=== PATIENT | male | born 1970 | race Caucasian/White ===

== ENCOUNTER 2018-08-21 17:38 | Emergency (ER) | payer OTHER ==
[~2018-08-21] VITALS: Ht 175.3 cm; Wt 127.0 kg
--- NOTE | 2018-08-21 17:50 | NUR ---
RECEIVED PT AMBULATORY. C/O PRODUCTIVE COUGH FOR 2WKS.SOB UPON EXERTION. DENIES FEVER, DENIES NVD, DENIES EAR PAIN, DENIES PAIN. DENIES RECENT TRAVEL [place]. MD AT BEDSIDE FOR HX AND PHYSICAL KEPT WARM AND COMFORTABLE. MONITORED ACCORDINGLY
--- NOTE | 2018-08-21 18:17 | NUR ---
Patient discharged to home in stable conditon. Written and verbal after care instructions given. Patient verbalizes understanding of instructions. all belongings with patient. ambulatory.
[2018-08-21 18:20] VITALS: BP 134/79
== END 2018-08-21 18:21 | disposition home or self-care (01) ==
LOC: ER 17:38
DX: J06.9 Acute upper respiratory infection, unspecified (principal)
CPT/HCPCS: 71045; A4663

== ENCOUNTER 2023-11-02 14:17 | Emergency (ER) | payer MEDICAID, OTHER ==
[~2023-11-02] VITALS: Ht 175.3 cm; Wt 131.5 kg
[2023-11-02 16:38] LABS: BASOPHILS # (AUTO) 0.1 K/UL (0.0-0.2); BASOPHILS % (AUTO) 1.5 % (0.0-2.0); EOSINOPHILS # (AUTO) 0.3 K/uL (0.0-0.7); EOSINOPHILS % (AUTO) 4.7 % (0.0-7.0); HEMATOCRIT 45.1 % (36.7-47.1); HEMOGLOBIN 15.1 g/dL (12.5-16.3); LYMPHOCYTES # (AUTO) 1.3 K/uL (0.8-4.8); LYMPHOCYTES % (AUTO) 20.7 % (20.5-51.5); MEAN CORPUSCULAR HEMOGLOBIN 29.6 uug (23.8-33.4); MEAN CORPUSCULAR HGB CONC 33 g/dL (32.5-36.3); MEAN CORPUSCULAR VOLUME 88.5 fL (73.0-96.2); MONOCYTES # (AUTO) 0.4 K/uL (0.1-1.30); MONOCYTES % (AUTO) 6.9 % (0.0-11.0); NEUTROPHILS # (AUTO) 4.2 K/uL (1.8-8.9); NEUTROPHILS % (AUTO) 66.2 % (38.5-71.5); PLATELET COUNT (AUTO) 249 K/uL (152-348); RED CELL DISTRIBUTION WIDTH 13.4 % (12.1-16.2); WHITE BLOOD COUNT (AUTO) 6.3 K/uL (3.6-10.2)
[2023-11-02 16:42] LABS: DIFFERENTIAL COMMENT 1
[2023-11-02 16:46] LABS: CALCIUM 9.1 mg/dL (8.5-10.1); CARBON DIOXIDE 28 mmol/L (21-32); CHLORIDE 108 mmol/L (98-107); CREATININE 1.2 mg/dL (0.6-1.3); GLUCOSE 122 mg/dL (74-106); SODIUM SERUM 142 mmol/L (136-145); UREA NITROGEN, BLOOD 20 mg/dL (7-18)
[2023-11-02 16:59] LABS: ALANINE AMINOTRANSFERASE 31 U/L (16-63); ALBUMIN 3.9 g/dL (3.4-5.0); ALKALINE PHOSPHATASE 60 U/L (50-136); ASPARTATE AMINOTRANSFERASE 16 U/L (15-37); BILIRUBIN,DIRECT 0.3 mg/dL (0.0-0.2); BILIRUBIN,TOTAL 1.9 mg/dL (0.2-1.0); NT-PRO BNP 1391 pg/mL (0-125); TOTAL PROTEIN, SERUM 6.9 g/dL (6.4-8.2)
[2023-11-02 17:15] VITALS: O2SAT 98
[2023-11-02] MEDS: IPRATROPIUM BROMIDE 0.5 MG/2.5 ML NEBU NEB ONE (17:15)
[2023-11-02] MEDS: ALBUTEROL SULFATE 2.5 MG/3 ML NEBU NEB ONE (17:15)
[2023-11-02] MEDS ORDERED: predniSONE 20 MG TABLET ONE (17:18)
[2023-11-02] MEDS ORDERED: ALBUTEROL SULFATE 2.5 MG/3 ML NEBU ONE (17:22)
[2023-11-02] MEDS ORDERED: IPRATROPIUM BROMIDE 0.5 MG/2.5 ML NEBU ONE (17:22)
[2023-11-02] MEDS: predniSONE 10 MG TABLET PO ONE (17:24)
[2023-11-02] MEDS ORDERED: PRED50TA PO (18:15)
[2023-11-02] MEDS ORDERED: ALBU8.5H8 INH (18:15)
[2023-11-02 20:12] VITALS: BP 138/98; TEMP 208.9; O2SAT 98
== END 2023-11-02 20:13 | disposition home or self-care (01) ==
LOC: ER 14:17
DX: J45.909 Unspecified asthma, uncomplicated (principal)
CPT/HCPCS: 99285; 71045; 80076; 80048; 83880; 85025; 85379; 84484; 36415; 93005; 94644; J7512; A4606; A4663; J3590

== ENCOUNTER 2023-11-30 08:41 | Inpatient (IN) | payer OTHER ==
[~2023-11-30] VITALS: Ht 175.3 cm; Wt 131.3 kg
[~2023-11-30 08:41] MED LIST: ALBU8.5H8 INH; PRED50TA PO
[2023-11-30] MEDS: ALBUTEROL SULFATE 2.5 MG/3 ML NEBU NEB ONE (09:02)
[2023-11-30] MEDS: IPRATROPIUM BROMIDE 0.5 MG/2.5 ML NEBU NEB ONE (09:02)
[2023-11-30 09:13] LABS: BASOPHILS % (AUTO) 0.5 % (0.0-2.0); EOSINOPHILS # (AUTO) 0.2 K/uL (0.0-0.7); EOSINOPHILS % (AUTO) 3.2 % (0.0-7.0); HEMATOCRIT 42.9 % (36.7-47.1); HEMOGLOBIN 14.7 g/dL (12.5-16.3); LYMPHOCYTES # (AUTO) 0.9 K/uL (0.8-4.8); LYMPHOCYTES % (AUTO) 13.1 % (20.5-51.5); MEAN CORPUSCULAR HEMOGLOBIN 30.2 uug (23.8-33.4); MEAN CORPUSCULAR HGB CONC 34 g/dL (32.5-36.3); MEAN CORPUSCULAR VOLUME 87.7 fL (73.0-96.2); MONOCYTES # (AUTO) 0.5 K/uL (0.1-1.30); MONOCYTES % (AUTO) 6.9 % (0.0-11.0); NEUTROPHILS # (AUTO) 5.5 K/uL (1.8-8.9); NEUTROPHILS % (AUTO) 76.3 % (38.5-71.5); PLATELET COUNT (AUTO) 252 K/uL (152-348); RED BLOOD CELL COUNT(AUTO) 4.89 MIL/uL (4.06-5.63); RED CELL DISTRIBUTION WIDTH 13.3 % (12.1-16.2); WHITE BLOOD COUNT (AUTO) 7.2 K/uL (3.6-10.2)
[2023-11-30 09:15] VITALS: O2SAT 96
[2023-11-30 09:19] LABS: DIFFERENTIAL COMMENT 1
[2023-11-30 09:26] LABS: CALCIUM 8.9 mg/dL (8.5-10.1); CARBON DIOXIDE 27 mmol/L (21-32); CHLORIDE 106 mmol/L (98-107); CREATININE 1.2 mg/dL (0.6-1.3); GLUCOSE 126 mg/dL (74-106); POTASSIUM 3.9 mmol/L (3.5-5.1); SODIUM SERUM 143 mmol/L (136-145); UREA NITROGEN, BLOOD 15 mg/dL (7-18)
[2023-11-30 09:30] VITALS: O2SAT 99
[2023-11-30 09:39] LABS: ALANINE AMINOTRANSFERASE 24 U/L (16-63); ALBUMIN 3.6 g/dL (3.4-5.0); ALKALINE PHOSPHATASE 57 U/L (50-136); ASPARTATE AMINOTRANSFERASE 8 U/L (15-37); BILIRUBIN,DIRECT 0.3 mg/dL (0.0-0.2); BILIRUBIN,TOTAL 1.6 mg/dL (0.2-1.0); NT-PRO BNP 1905 pg/mL (0-125); TOTAL PROTEIN, SERUM 6.4 g/dL (6.4-8.2)
[2023-11-30] MEDS ORDERED: DAPA10TA PO (12:17)
[2023-11-30] MEDS ORDERED: LOSA25TA27 PO (12:17)
[2023-11-30] MEDS ORDERED: SPIR25TA6 PO (12:17)
[2023-11-30] MEDS: FUROSEMIDE 20 MG TABLET PO ONE (12:34)
[2023-11-30] MEDS: FUROSEMIDE 40 MG/4 ML VIAL IV ONE ×2 (14:00→18:12)
[2023-11-30] MEDS ORDERED: ONDANSETRON 4 MG/2 ML VIAL IV PRN (14:00)
[2023-11-30] MEDS ORDERED: ALBUTEROL SULFATE 8 GM HFA.AER.AD INH PRN (14:00)
[2023-11-30] MEDS ORDERED: REMEDY ESSENTIAL ZINC PASTE 113 GM TP PRN (14:00)
[2023-11-30] MEDS ORDERED: MAGNESIUM HYDROXIDE 30 ML LIQUID UDC PO PRN (14:00)
[2023-11-30] MEDS ORDERED: ALBUTEROL SULFATE 2.5 MG/3 ML NEBU NEB PRN (17:15)
[2023-11-30 17:25] VITALS: BP 148/101; TEMP 99; O2SAT 96
[2023-11-30 20:00] VITALS: BP 117/88; TEMP 98.1; O2SAT 95
[2023-11-30] MEDS: ENOXAPARIN SODIUM 40 MG/0.4 ML DISP.SYRIN SQ SCH (20:24)
[2023-12-01] VITALS: BP 129/95; TEMP 98; O2SAT 93
[2023-12-01 04:00] VITALS: BP 135/95; TEMP 97.7; O2SAT 95
[2023-12-01 07:42] LABS: BASOPHILS % (AUTO) 0.4 % (0.0-2.0); EOSINOPHILS # (AUTO) 0.2 K/uL (0.0-0.7); EOSINOPHILS % (AUTO) 3.6 % (0.0-7.0); HEMATOCRIT 43.6 % (36.7-47.1); HEMOGLOBIN 15.1 g/dL (12.5-16.3); LYMPHOCYTES % (AUTO) 16.4 % (20.5-51.5); MEAN CORPUSCULAR HEMOGLOBIN 30.6 uug (23.8-33.4); MEAN CORPUSCULAR HGB CONC 35 g/dL (32.5-36.3); MONOCYTES # (AUTO) 0.5 K/uL (0.1-1.30); MONOCYTES % (AUTO) 8.4 % (0.0-11.0); NEUTROPHILS # (AUTO) 4.2 K/uL (1.8-8.9); NEUTROPHILS % (AUTO) 71.2 % (38.5-71.5); PLATELET COUNT (AUTO) 253 K/uL (152-348); RED BLOOD CELL COUNT(AUTO) 4.96 MIL/uL (4.06-5.63); WHITE BLOOD COUNT (AUTO) 5.8 K/uL (3.6-10.2)
[2023-12-01 07:46] LABS: DIFFERENTIAL COMMENT 1
[2023-12-01 07:56] LABS: ALBUMIN 3.5 g/dL (3.4-5.0); BILIRUBIN,TOTAL 2.4 mg/dL (0.2-1.0); CALCIUM 8.9 mg/dL (8.5-10.1); CREATININE 1.1 mg/dL (0.6-1.3); MAGNESIUM 2.4 mg/dL (1.8-2.4); PHOSPHOROUS 3.2 mg/dL (2.5-4.9); POTASSIUM 3.9 mmol/L (3.5-5.1); TOTAL PROTEIN, SERUM 6.5 g/dL (6.4-8.2)
[2023-12-01] MEDS ORDERED: LOSARTAN POTASSIUM 25 MG TABLET PO SCH (09:00)
[2023-12-01 09:04] VITALS: BP 147/97; TEMP 97.7; O2SAT 96
[2023-12-01] MEDS: FUROSEMIDE 40 MG/4 ML VIAL IV SCH ×2 (09:11→21:28)
[2023-12-01 12:12] VITALS: BP 122/87; TEMP 97.6; O2SAT 97
[2023-12-01] MEDS: SPIRONOLACTONE 25 MG TABLET PO SCH (13:52)
[2023-12-01 16:00] VITALS: BP 124/88; TEMP 97.6; O2SAT 97
[2023-12-01 17:23] LABS: *AMPHETAMINE, URINE NEGATIVE (NEGATIVE); *BARBITURATE, URINE NEGATIVE (NEGATIVE); *BENZODIAZEPINE, URINE NEGATIVE (NEGATIVE); *CANNABINOID, URINE NEGATIVE (NEGATIVE); *COCCAINE, URINE NEGATIVE (NEGATIVE); *OPIATE, URINE NEGATIVE (NEGATIVE); *PHENCYCLIDINE SCREEN,URINE NEGATIVE (NEGATIVE); FENTANYL, URINE NEGATIVE (NEGATIVE)
[2023-12-01 19:00] VITALS: BP 138/94; TEMP 98.3; O2SAT 95
[2023-12-02] VITALS: BP 138/92; TEMP 98; O2SAT 95
[2023-12-02 04:00] VITALS: BP 135/99; TEMP 98.8; O2SAT 95
[2023-12-02 06:59] LABS: BASOPHILS # (AUTO) 0.1 K/UL (0.0-0.2); BASOPHILS % (AUTO) 0.9 % (0.0-2.0); EOSINOPHILS # (AUTO) 0.2 K/uL (0.0-0.7); EOSINOPHILS % (AUTO) 3.4 % (0.0-7.0); HEMATOCRIT 46.3 % (36.7-47.1); HEMOGLOBIN 15.8 g/dL (12.5-16.3); LYMPHOCYTES % (AUTO) 15.1 % (20.5-51.5); MEAN CORPUSCULAR HEMOGLOBIN 30.1 uug (23.8-33.4); MEAN CORPUSCULAR HGB CONC 34 g/dL (32.5-36.3); MEAN CORPUSCULAR VOLUME 87.9 fL (73.0-96.2); MONOCYTES # (AUTO) 0.5 K/uL (0.1-1.30); MONOCYTES % (AUTO) 8.4 % (0.0-11.0); NEUTROPHILS # (AUTO) 4.6 K/uL (1.8-8.9); NEUTROPHILS % (AUTO) 72.2 % (38.5-71.5); PLATELET COUNT (AUTO) 260 K/uL (152-348); RED BLOOD CELL COUNT(AUTO) 5.27 MIL/uL (4.06-5.63); RED CELL DISTRIBUTION WIDTH 13.4 % (12.1-16.2); WHITE BLOOD COUNT (AUTO) 6.4 K/uL (3.6-10.2)
[2023-12-02 07:15] LABS: DIFFERENTIAL COMMENT 1
[2023-12-02 07:24] LABS: ALBUMIN 3.7 g/dL (3.4-5.0); BILIRUBIN,DIRECT 0.4 mg/dL (0.0-0.2); BILIRUBIN,TOTAL 2.3 mg/dL (0.2-1.0); CALCIUM 9.1 mg/dL (8.5-10.1); CREATININE 1.1 mg/dL (0.6-1.3); POTASSIUM 3.8 mmol/L (3.5-5.1); TOTAL PROTEIN, SERUM 6.9 g/dL (6.4-8.2)
[2023-12-02 07:50] VITALS: BP 131/96; TEMP 98.2; O2SAT 97
[2023-12-02 11:27] VITALS: BP 131/94; TEMP 98.4; O2SAT 93
[2023-12-02] MEDS: METOPROLOL SUCCINATE XL 25 MG TAB.SR.24H PO SCH (12:05)
[2023-12-02] MEDS: VALSARTAN 40 MG TABLET PO SCH (12:05)
[2023-12-02 16:11] VITALS: BP 106/79; TEMP 97.9; O2SAT 95
[2023-12-02 20:42] VITALS: BP 109/82; TEMP 98.6; O2SAT 95
[2023-12-03 00:16] VITALS: BP 113/78; TEMP 97.7; O2SAT 95
[2023-12-03 05:27] VITALS: BP 107/82; TEMP 97.6; O2SAT 96
[2023-12-03 07:05] LABS: BASOPHILS % (AUTO) 0.4 % (0.0-2.0); EOSINOPHILS # (AUTO) 0.2 K/uL (0.0-0.7); EOSINOPHILS % (AUTO) 3.9 % (0.0-7.0); HEMATOCRIT 46.3 % (36.7-47.1); HEMOGLOBIN 16.1 g/dL (12.5-16.3); LYMPHOCYTES # (AUTO) 1.2 K/uL (0.8-4.8); LYMPHOCYTES % (AUTO) 19.4 % (20.5-51.5); MEAN CORPUSCULAR HEMOGLOBIN 30.6 uug (23.8-33.4); MEAN CORPUSCULAR HGB CONC 35 g/dL (32.5-36.3); MONOCYTES # (AUTO) 0.6 K/uL (0.1-1.30); MONOCYTES % (AUTO) 9.7 % (0.0-11.0); NEUTROPHILS # (AUTO) 4.2 K/uL (1.8-8.9); NEUTROPHILS % (AUTO) 66.6 % (38.5-71.5); PLATELET COUNT (AUTO) 272 K/uL (152-348); RED BLOOD CELL COUNT(AUTO) 5.26 MIL/uL (4.06-5.63); RED CELL DISTRIBUTION WIDTH 13.2 % (12.1-16.2); WHITE BLOOD COUNT (AUTO) 6.3 K/uL (3.6-10.2)
[2023-12-03 07:16] LABS: DIFFERENTIAL COMMENT 1
[2023-12-03 07:24] LABS: CALCIUM 9.4 mg/dL (8.5-10.1); CREATININE 1.3 mg/dL (0.6-1.3); POTASSIUM 4.4 mmol/L (3.5-5.1)
[2023-12-03 07:29] VITALS: BP 109/80; TEMP 98.3; O2SAT 97
[2023-12-03] MEDS: ACETAMINOPHEN 325 MG TABLET PO PRN (09:13)
[2023-12-03 15:02] VITALS: BP 106/66; TEMP 98.4; O2SAT 94
[2023-12-03 19:00] VITALS: BP 122/79; TEMP 98.2; O2SAT 96
[2023-12-04] VITALS: BP 107/71; TEMP 97.9; O2SAT 96
[2023-12-04 04:00] VITALS: BP 125/87; TEMP 97.9; O2SAT 98
[2023-12-04 07:00] LABS: BASOPHILS % (AUTO) 0.3 % (0.0-2.0); EOSINOPHILS # (AUTO) 0.2 K/uL (0.0-0.7); EOSINOPHILS % (AUTO) 3.3 % (0.0-7.0); HEMATOCRIT 45.4 % (36.7-47.1); HEMOGLOBIN 15.7 g/dL (12.5-16.3); LYMPHOCYTES # (AUTO) 1.1 K/uL (0.8-4.8); LYMPHOCYTES % (AUTO) 17.9 % (20.5-51.5); MEAN CORPUSCULAR HEMOGLOBIN 30.6 uug (23.8-33.4); MEAN CORPUSCULAR HGB CONC 35 g/dL (32.5-36.3); MEAN CORPUSCULAR VOLUME 88.4 fL (73.0-96.2); MONOCYTES # (AUTO) 0.6 K/uL (0.1-1.30); MONOCYTES % (AUTO) 9.4 % (0.0-11.0); NEUTROPHILS # (AUTO) 4.4 K/uL (1.8-8.9); NEUTROPHILS % (AUTO) 69.1 % (38.5-71.5); PLATELET COUNT (AUTO) 262 K/uL (152-348); RED BLOOD CELL COUNT(AUTO) 5.13 MIL/uL (4.06-5.63); RED CELL DISTRIBUTION WIDTH 13.2 % (12.1-16.2); WHITE BLOOD COUNT (AUTO) 6.3 K/uL (3.6-10.2)
[2023-12-04 07:13] LABS: DIFFERENTIAL COMMENT 1
[2023-12-04 07:16] LABS: CALCIUM 9.4 mg/dL (8.5-10.1); CREATININE 1.3 mg/dL (0.6-1.3); POTASSIUM 4.2 mmol/L (3.5-5.1)
[2023-12-04 07:35] VITALS: BP 111/77; TEMP 98.2; O2SAT 98
[2023-12-04 11:22] VITALS: BP 118/78; TEMP 98.4; O2SAT 98
[2023-12-04] MEDS ORDERED: EMPA10TA PO (11:43)
[2023-12-04] MEDS ORDERED: SPIR25TA PO (11:43)
[2023-12-04] MEDS ORDERED: METO-356 PO (11:43)
[2023-12-04] MEDS ORDERED: SACU1TAB7 PO (11:43)
[2023-12-04] MEDS ORDERED: SACU1TAB PO (11:47)
== END 2023-12-04 14:20 | disposition home or self-care (01) | DRG 194 ==
LOC: ER 08:41 → TELE3 15:37
PROVIDERS: ADMIT Nurse Practitioner Acute Care; ATTEND Nurse Practitioner Acute Care
DX: I50.21 Acute systolic (congestive) heart failure (principal); J96.01 Acute respiratory failure with hypoxia; I42.0 Dilated cardiomyopathy; Z68.41 Body mass index [BMI] 40.0-44.9, adult; R17 Unspecified jaundice; Z86.19 Personal history of other infectious and parasitic diseases; E66.2 Morbid (severe) obesity with alveolar hypoventilation; Z79.84 Long term (current) use of oral hypoglycemic drugs; Z79.899 Other long term (current) drug therapy
CPT/HCPCS: 36415; 71045; 71250; 76705; 83735; 84100; 84484; 85025; 93307; G0378; J1650; J1940; J3590

== ENCOUNTER 2024-05-06 03:41 | Emergency (ER) | payer OTHER ==
[~2024-05-06] VITALS: Ht 170.2 cm; Wt 124.7 kg
[~2024-05-06 03:41] MED LIST changes: -ALBU8.5H8 INH; +EMPA10TA PO; +METO-356 PO; -PRED50TA PO; +SACU1TAB PO; +SPIR25TA PO
[2024-05-06 04:09] LABS: BASOPHILS % (AUTO) 0.5 % (0.0-2.0); EOSINOPHILS # (AUTO) 0.2 K/uL (0.0-0.7); EOSINOPHILS % (AUTO) 2.1 % (0.0-7.0); HEMATOCRIT 42.4 % (36.7-47.1); HEMOGLOBIN 14.3 g/dL (12.5-16.3); LYMPHOCYTES % (AUTO) 10.1 % (20.5-51.5); MEAN CORPUSCULAR HGB CONC 34 g/dL (32.5-36.3); MEAN CORPUSCULAR VOLUME 88.5 fL (73.0-96.2); MONOCYTES # (AUTO) 0.9 K/uL (0.1-1.30); NEUTROPHILS # (AUTO) 7.8 K/uL (1.8-8.9); NEUTROPHILS % (AUTO) 78.3 % (38.5-71.5); PLATELET COUNT (AUTO) 347 K/uL (152-348); RED BLOOD CELL COUNT(AUTO) 4.79 MIL/uL (4.06-5.63); RED CELL DISTRIBUTION WIDTH 13.4 % (12.1-16.2)
[2024-05-06 04:10] LABS: DIFFERENTIAL COMMENT 1
[2024-05-06 04:15] LABS: CALCIUM 9.3 mg/dL (8.5-10.1); CARBON DIOXIDE 25 mmol/L (21-32); CHLORIDE 106 mmol/L (98-107); GLUCOSE 144 mg/dL (74-106); POTASSIUM 4.1 mmol/L (3.5-5.1); SODIUM SERUM 141 mmol/L (136-145); UREA NITROGEN, BLOOD 15 mg/dL (7-18)
[2024-05-06 04:27] LABS: ALANINE AMINOTRANSFERASE 18 U/L (16-63); ALBUMIN 3.7 g/dL (3.4-5.0); ALKALINE PHOSPHATASE 75 U/L (50-136); ASPARTATE AMINOTRANSFERASE 16 U/L (15-37); BILIRUBIN,DIRECT 0.2 mg/dL (0.0-0.2); BILIRUBIN,TOTAL 0.8 mg/dL (0.2-1.0); NT-PRO BNP 87 pg/mL (0-125); TOTAL PROTEIN, SERUM 7.3 g/dL (6.4-8.2)
[2024-05-06] MEDS ORDERED: METOCLOPRAMIDE HCL 10 MG/2 ML VIAL ONE (04:54)
[2024-05-06] MEDS ORDERED: MORPHINE SULFATE 2 MG/1 ML DISP.SYRIN ONE (04:55)
[2024-05-06] MEDS: METOCLOPRAMIDE HCL 10 MG/2 ML VIAL IV ONE (05:04)
[2024-05-06] MEDS: MORPHINE SULFATE 2 MG/1 ML DISP.SYRIN IV ONE (05:05)
[2024-05-06] MEDS: IV NS 1000 ML 1,000 ML IV ONE (05:24)
[2024-05-06] MEDS ORDERED: PANT40TA49 PO (06:20)
[2024-05-06 06:37] VITALS: BP 132/88; TEMP 98.2; O2SAT 95
== END 2024-05-06 06:38 | disposition home or self-care (01) ==
LOC: ER 03:50
DX: R07.89 Other chest pain (principal); K21.9 Gastro-esophageal reflux disease without esophagitis; R00.0 Tachycardia, unspecified; Z79.84 Long term (current) use of oral hypoglycemic drugs; Z79.899 Other long term (current) drug therapy; Z87.09 Personal history of other diseases of the respiratory system
CPT/HCPCS: 99285; 96374; 71250; 96361; 96375; 80076; 80048; 83880; 85025; 85379; 85730; 84484 ×2; 36415; 93005; J2765; J2270; J7040; A4606; A4663

== ENCOUNTER 2024-05-07 21:08 | Emergency (ER) | payer OTHER ==
[~2024-05-07] VITALS: Ht 170.2 cm; Wt 127.0 kg
[~2024-05-07 21:08] MED LIST changes: +PANT40TA49 PO
[2024-05-07 21:39] LABS: BASOPHILS # (AUTO) 0.1 K/UL (0.0-0.2); BASOPHILS % (AUTO) 0.5 % (0.0-2.0); EOSINOPHILS # (AUTO) 0.2 K/uL (0.0-0.7); EOSINOPHILS % (AUTO) 2.2 % (0.0-7.0); HEMATOCRIT 41.5 % (36.7-47.1); HEMOGLOBIN 14.1 g/dL (12.5-16.3); LYMPHOCYTES # (AUTO) 0.9 K/uL (0.8-4.8); LYMPHOCYTES % (AUTO) 9.9 % (20.5-51.5); MEAN CORPUSCULAR HEMOGLOBIN 29.9 uug (23.8-33.4); MEAN CORPUSCULAR HGB CONC 34 g/dL (32.5-36.3); MONOCYTES # (AUTO) 0.7 K/uL (0.1-1.30); MONOCYTES % (AUTO) 7.8 % (0.0-11.0); NEUTROPHILS # (AUTO) 7.6 K/uL (1.8-8.9); NEUTROPHILS % (AUTO) 79.6 % (38.5-71.5); PLATELET COUNT (AUTO) 390 K/uL (152-348); RED BLOOD CELL COUNT(AUTO) 4.72 MIL/uL (4.06-5.63); RED CELL DISTRIBUTION WIDTH 13.3 % (12.1-16.2); WHITE BLOOD COUNT (AUTO) 9.6 K/uL (3.6-10.2)
[2024-05-07 21:53] LABS: ALBUMIN 3.6 g/dL (3.4-5.0); BILIRUBIN,DIRECT 0.2 mg/dL (0.0-0.2); BILIRUBIN,TOTAL 0.9 mg/dL (0.2-1.0); CALCIUM 9.4 mg/dL (8.5-10.1); POTASSIUM 3.9 mmol/L (3.5-5.1); TOTAL PROTEIN, SERUM 7.6 g/dL (6.4-8.2)
[2024-05-07 21:54] LABS: DIFFERENTIAL COMMENT 1
[2024-05-07] MEDS ORDERED: SWABABLE VALVE TRANSFER SET EA MC ONE (22:15)
[2024-05-07] MEDS ORDERED: IV NORMAL SALINE 250 ML IV ONE (22:15)
[2024-05-07] MEDS ORDERED: IOHEXOL 350 100 ML INFUS..BTL ONE (22:15)
[2024-05-07] MEDS ORDERED: MORPHINE SULFATE 4 MG/1 ML DISP.SYRIN ONE (23:53)
[2024-05-07] MEDS: MORPHINE SULFATE 4 MG/1 ML DISP.SYRIN IV ONE (23:57)
[2024-05-08] MEDS ORDERED: HYDROMORPHONE 1 MG/1 ML DISP.SYRIN ONE (01:31)
[2024-05-08] MEDS: HYDROMORPHONE 1 MG/1 ML DISP.SYRIN IV ONE (01:37)
[2024-05-08] MEDS ORDERED: TRAM50TA PO ×2 (03:20→13:20)
[2024-05-08 03:34] VITALS: BP 122/78; O2SAT 95
[2024-05-08] MEDS ORDERED: TRAM50TA2 PO (13:20)
== END 2024-05-08 03:29 | disposition home or self-care (01) ==
LOC: ER 21:15
DX: R07.9 Chest pain, unspecified (principal); R12 Heartburn; Z79.84 Long term (current) use of oral hypoglycemic drugs; Z79.899 Other long term (current) drug therapy; Z87.09 Personal history of other diseases of the respiratory system; Z86.79 Personal history of other diseases of the circulatory system
CPT/HCPCS: 99285; 71275; 96374; 76700; 71045; 80076; 80048; 85025; 85379; 84484 ×3; 36415 ×2; 74177; 93005; 96375; Q9967; J2270; J1171; A4606; A4663

== ENCOUNTER 2024-06-14 21:23 | Emergency (ER) | payer OTHER ==
[~2024-06-14] VITALS: Ht 175.3 cm; Wt 120.2 kg
[~2024-06-14 21:23] MED LIST changes: +TRAM50TA PO; +TRAM50TA2 PO
[2024-06-14] MEDS ORDERED: ASPI81TA31 PO (21:36)
[2024-06-14] MEDS ORDERED: KETOROLAC TROMETHAMINE 30 MG INJ ONE (21:52)
[2024-06-14] MEDS ORDERED: CYCLOBENZAPRINE HCL 10 MG TABLET ONE ×2 (21:52→22:09)
[2024-06-14 22:01] LABS: *BILIRUBIN,URIN NEGATIVE (NEGATIVE); *BLOOD, URINE 1+ (NEGATIVE); *CLARITY,URINE CLEAR (CLEAR); *COLOR,URINE PINK (YELLOW); *KETONES,URINE NEGATIVE (NEGATIVE); *PROTEIN,URINE NEGATIVE (NEGATIVE); *UROBILINOGEN,URINE 0.2 E.U./dl (NORMAL); LEUKOCYTE ESTERASE ,URINE NEGATIVE (NEGATIVE); NITRITE, URINE NEGATIVE (NEGATIVE); PH,URINE 5.5 (5.0-8.0); UGLUCOSE 2+ (NEGATIVE)
[2024-06-14 22:01] LABS: BASOPHILS % (AUTO) 0.5 % (0.0-2.0); EOSINOPHILS # (AUTO) 0.3 K/uL (0.0-0.7); EOSINOPHILS % (AUTO) 3.9 % (0.0-7.0); HEMATOCRIT 41.4 % (36.7-47.1); HEMOGLOBIN 13.9 g/dL (12.5-16.3); LYMPHOCYTES # (AUTO) 1.1 K/uL (0.8-4.8); LYMPHOCYTES % (AUTO) 15.6 % (20.5-51.5); MEAN CORPUSCULAR HEMOGLOBIN 29.6 uug (23.8-33.4); MEAN CORPUSCULAR HGB CONC 34 g/dL (32.5-36.3); MEAN CORPUSCULAR VOLUME 87.8 fL (73.0-96.2); MONOCYTES # (AUTO) 0.6 K/uL (0.1-1.30); MONOCYTES % (AUTO) 8.8 % (0.0-11.0); NEUTROPHILS # (AUTO) 5.1 K/uL (1.8-8.9); NEUTROPHILS % (AUTO) 71.2 % (38.5-71.5); PLATELET COUNT (AUTO) 395 K/uL (152-348); RED BLOOD CELL COUNT(AUTO) 4.71 MIL/uL (4.06-5.63); RED CELL DISTRIBUTION WIDTH 13.3 % (12.1-16.2); WHITE BLOOD COUNT (AUTO) 7.1 K/uL (3.6-10.2)
[2024-06-14] MEDS: KETOROLAC TROMETHAMINE 30 MG INJ IM ONE (22:07)
[2024-06-14] MEDS: CYCLOBENZAPRINE HCL 10 MG TABLET PO ONE (22:09)
[2024-06-14 22:13] LABS: ALBUMIN 3.6 g/dL (3.4-5.0); BILIRUBIN,DIRECT 0.2 mg/dL (0.0-0.2); BILIRUBIN,TOTAL 0.6 mg/dL (0.2-1.0); CALCIUM 9.7 mg/dL (8.5-10.1); CREATININE 1.1 mg/dL (0.6-1.3); POTASSIUM 3.9 mmol/L (3.5-5.1); TOTAL PROTEIN, SERUM 7.6 g/dL (6.4-8.2)
[2024-06-14 22:15] LABS: BACTERIA,URINE NONE SEEN /HPF (NONE SEEN); SQUAMOUS EPITHELIAL CELL,UR FEW /HPF (NONE SEEN); WBC,URINE 0-3 /HPF (0-3)
[2024-06-14 22:16] LABS: RBC,URINE 0-3 /HPF (0-3)
[2024-06-15 03:12] VITALS: O2SAT 97
== END 2024-06-15 03:20 | disposition short-term general hospital (02) ==
LOC: ER 21:23
DX: M54.6 Pain in thoracic spine (principal); R10.11 Right upper quadrant pain; I11.0 Hypertensive heart disease with heart failure; I50.9 Heart failure, unspecified; K21.9 Gastro-esophageal reflux disease without esophagitis; Z79.82 Long term (current) use of aspirin; Z79.84 Long term (current) use of oral hypoglycemic drugs; Z79.899 Other long term (current) drug therapy; Z87.09 Personal history of other diseases of the respiratory system
CPT/HCPCS: 99285; 72128; 80076; 80048; 81001; 83690; 85025; 36415; 74176; 96372; J1885; A4606; A4663